=== PATIENT | female | born 1945 | race Two or more races ===

== ENCOUNTER 2017-06-30 08:58 | Outpatient (CLI) | payer OTHER | END 2017-06-30 09:45 | disposition home or self-care (01) | LOC: NUCLEAR 08:58 | DX: I10 Essential (primary) hypertension (principal); I87.2 Venous insufficiency (chronic) (peripheral); M54.5 Low back pain; K21.9 Gastro-esophageal reflux disease without esophagitis; E66.8 Other obesity; E78.9 Disorder of lipoprotein metabolism, unspecified; N39.9 Disorder of urinary system, unspecified; N39.0 Urinary tract infection, site not specified ==

== ENCOUNTER 2017-08-05 10:18 | Outpatient (CLI) | payer OTHER | END 2017-08-05 10:47 | disposition home or self-care (01) | LOC: MRI 10:18 | DX: M25.561 Pain in right knee (principal); M25.562 Pain in left knee; R07.9 Chest pain, unspecified | CPT/HCPCS: 73718 ==

== ENCOUNTER 2017-08-17 12:10 | Outpatient (CLI) | payer OTHER | END 2017-08-17 13:00 | disposition home or self-care (01) | LOC: NUCLEAR 12:10 | DX: M85.88 Other specified disorders of bone density and structure, other site (principal); M81.0 Age-related osteoporosis without current pathological fracture ==

== ENCOUNTER 2017-09-06 15:35 | Outpatient (CLI) | payer OTHER | END 2017-09-06 17:05 | disposition home or self-care (01) | LOC: NUCLEAR 15:35 | DX: M25.461 Effusion, right knee (principal); M25.462 Effusion, left knee; M25.561 Pain in right knee; M25.562 Pain in left knee; I73.9 Peripheral vascular disease, unspecified ==

== ENCOUNTER 2017-10-05 09:16 | Outpatient (CLI) | payer OTHER | END 2017-10-05 09:35 | disposition home or self-care (01) | LOC: MRI 09:16 | DX: M54.5 Low back pain (principal) | CPT/HCPCS: 72148 ==

== ENCOUNTER → 2017-12-10 | Outpatient (CLI) | payer OTHER | END | disposition home or self-care (01) | LOC: SONOGRAMA 08:33 → MAMO-SONO 08:45 | DX: R16.0 Hepatomegaly, not elsewhere classified (principal) ==

== ENCOUNTER 2018-05-26 10:43 | Outpatient (CLI) | payer OTHER | END 2018-05-26 10:52 | disposition home or self-care (01) | LOC: RAD 10:43 | DX: R07.89 Other chest pain (principal) ==

== ENCOUNTER 2018-05-26 12:00 | Outpatient (CLI) | payer OTHER | END 2018-05-26 12:10 | disposition home or self-care (01) | LOC: EKG 12:00 | DX: I10 Essential (primary) hypertension (principal) ==

== ENCOUNTER 2018-05-26 13:16 | Outpatient (CLI) | payer OTHER | END 2018-05-26 13:33 | disposition home or self-care (01) | LOC: MAMO-SONO 13:16 | DX: Z12.31 Encounter for screening mammogram for malignant neoplasm of breast (principal); Z87.898 Personal history of other specified conditions; N64.89 Other specified disorders of breast; I10 Essential (primary) hypertension; E78.89 Other lipoprotein metabolism disorders; E66.8 Other obesity; M54.5 Low back pain; K21.9 Gastro-esophageal reflux disease without esophagitis; N39.8 Other specified disorders of urinary system; N39.0 Urinary tract infection, site not specified; I11.9 Hypertensive heart disease without heart failure; R16.0 Hepatomegaly, not elsewhere classified ==

== ENCOUNTER 2018-10-03 10:58 | Outpatient (CLI) | payer OTHER | END 2018-10-03 11:02 | disposition home or self-care (01) | LOC: RAD 10:58 | DX: M25.561 Pain in right knee (principal); M25.562 Pain in left knee ==

== ENCOUNTER 2018-10-03 11:16 | Outpatient (CLI) | payer OTHER | END 2018-10-03 11:18 | disposition home or self-care (01) | LOC: SONOGRAMA 11:16 | DX: N64.4 Mastodynia (principal); N83.00 Follicular cyst of ovary, unspecified side ==

== ENCOUNTER 2019-06-19 09:44 | Outpatient (CLI) | payer OTHER | END 2019-06-19 15:44 | disposition home or self-care (01) | LOC: MAMO-SONO 09:44 | DX: M54.5 Low back pain (principal); M23.91 Unspecified internal derangement of right knee; E66.8 Other obesity; E78.89 Other lipoprotein metabolism disorders; I11.9 Hypertensive heart disease without heart failure; E55.9 Vitamin D deficiency, unspecified; H52.4 Presbyopia; N76.0 Acute vaginitis; M25.561 Pain in right knee; M25.562 Pain in left knee; K21.9 Gastro-esophageal reflux disease without esophagitis; H43.393 Other vitreous opacities, bilateral; Z12.31 Encounter for screening mammogram for malignant neoplasm of breast ==

== ENCOUNTER → 2020-08-20 13:27 | Outpatient (CLI) | payer OTHER | END | disposition home or self-care (01) | LOC: NUCLEAR 13:27 | PROVIDERS: ATTEND Internal Medicine | DX: M81.0 Age-related osteoporosis without current pathological fracture (principal); M54.5 Low back pain ==

== ENCOUNTER 2020-08-20 14:02 | Outpatient (CLI) | payer OTHER | END 2020-08-20 14:16 | disposition home or self-care (01) | LOC: RAD 14:02 → MAMO-SONO 14:15 → RAD 14:16 | PROVIDERS: ATTEND Internal Medicine | DX: Z12.31 Encounter for screening mammogram for malignant neoplasm of breast (principal); Z87.898 Personal history of other specified conditions; N64.89 Other specified disorders of breast; M23.91 Unspecified internal derangement of right knee; M54.5 Low back pain; K21.9 Gastro-esophageal reflux disease without esophagitis; E66.8 Other obesity; E78.89 Other lipoprotein metabolism disorders; I11.9 Hypertensive heart disease without heart failure; E55.9 Vitamin D deficiency, unspecified; H52.4 Presbyopia; N76.0 Acute vaginitis; H43.393 Other vitreous opacities, bilateral; Z13.820 Encounter for screening for osteoporosis ==

== ENCOUNTER 2021-09-10 10:33 | Outpatient (CLI) | payer OTHER | END 2021-09-10 10:37 | disposition home or self-care (01) | LOC: MAMO-SONO 10:33 | PROVIDERS: ATTEND Internal Medicine | DX: Z12.31 Encounter for screening mammogram for malignant neoplasm of breast (principal); Z13.820 Encounter for screening for osteoporosis; M23.91 Unspecified internal derangement of right knee; M54.50 Low back pain, unspecified; K21.9 Gastro-esophageal reflux disease without esophagitis; E66.8 Other obesity; E78.9 Disorder of lipoprotein metabolism, unspecified; I11.9 Hypertensive heart disease without heart failure; E55.9 Vitamin D deficiency, unspecified; H52.4 Presbyopia; N76.0 Acute vaginitis; H43.393 Other vitreous opacities, bilateral ==

== ENCOUNTER 2021-12-23 10:17 | Outpatient (CLI) | payer OTHER | END 2021-12-23 15:26 | disposition home or self-care (01) | LOC: MRI 10:17 | PROVIDERS: ATTEND Orthopaedic Surgery | DX: M25.561 Pain in right knee (principal); M25.562 Pain in left knee; I11.9 Hypertensive heart disease without heart failure; I70.0 Atherosclerosis of aorta; M23.91 Unspecified internal derangement of right knee | CPT/HCPCS: 73721 ==

== ENCOUNTER → 2022-12-29 | Outpatient (CLI) | payer OTHER | END | disposition home or self-care (01) | LOC: RAD 13:25 | PROVIDERS: ATTEND Internal Medicine | DX: N60.12 Diffuse cystic mastopathy of left breast (principal); N60.11 Diffuse cystic mastopathy of right breast; Z12.31 Encounter for screening mammogram for malignant neoplasm of breast; M23.91 Unspecified internal derangement of right knee; M54.59 Other low back pain; K21.9 Gastro-esophageal reflux disease without esophagitis; E66.8 Other obesity; E78.9 Disorder of lipoprotein metabolism, unspecified; I11.9 Hypertensive heart disease without heart failure; E55.9 Vitamin D deficiency, unspecified; H52.4 Presbyopia; N76.0 Acute vaginitis; H43.393 Other vitreous opacities, bilateral; I70.0 Atherosclerosis of aorta; I87.2 Venous insufficiency (chronic) (peripheral); Z87.891 Personal history of nicotine dependence ==

== ENCOUNTER 2023-04-22 08:52 | Outpatient (CLI) | payer OTHER | END 2023-04-22 09:04 | disposition home or self-care (01) | LOC: SONOGRAMA 08:52 | PROVIDERS: ATTEND Internal Medicine Gastroenterology | DX: R16.0 Hepatomegaly, not elsewhere classified (principal) ==

== ENCOUNTER 2023-10-28 09:59 | Outpatient (CLI) | payer OTHER | END 2023-10-28 10:13 | disposition home or self-care (01) | LOC: MRI 09:59 | PROVIDERS: ATTEND General Practice | DX: M17.0 Bilateral primary osteoarthritis of knee (principal) | CPT/HCPCS: 73721 ==

== ENCOUNTER 2023-12-22 09:00 | Inpatient (IN) | payer OTHER ==
[~2023-12-22] VITALS: Ht 165.1 cm; Wt 93.9 kg
[2023-12-22 11:07] LABS: URINE APPEARANCE Cloudy; URINE BILIRRUBIN Negative (NEGATIVE); URINE BLOOD Negative; URINE COLOR Yellow; URINE GLUCOSE Negative (NEGATIVE); URINE KETONE Negative (NEGATIVE); URINE LEUKOCYTE Negative; URINE NITRATE Negative; URINE PROTEIN Negative (NEGATIVE); URINE UROBILINOGEN 0.2 E.U./dl
[2023-12-22 11:08] LABS: HEMOGLOBIN 15.1 g/dL (12.0-15.00); MEAN CELL VOLUME 89.2 fL (80.00-100.00); MEAN CORPUSCULAR HEMOGLOBIN 30.6 pg (27.00-32.0); MEAN CORPUSCULAR HGB CONC 34.3 g/dl (32.0-36.0); PLATELET COUNT 193 K/uL (150-450); RED BLOOD COUNT 4.93 M/uL (4.00-6.00); RED CELL DISTRIBUTION WIDTH 14.7 % (11.5-14.5)
[2023-12-22 11:11] LABS: URINE BACTERIA 8953.3 uL (0.0-1933); URINE EPITHELIAL CELLS 52.8 uL (0.0-38.8); URINE RBC 12.9 uL (0.0-20.8); URINE WBC 98.4 uL (0.0-23.2)
[2023-12-22 11:38] LABS: INR 1.01; PARTIAL THROMBOPLASTIN TIME 30.4 SECONDS (22.0-34.0)
[2023-12-22 11:44] LABS: URINE CAST 1.06 uL (0.0-1.40)
[2023-12-22 11:46] LABS: ALBUMIN 3.7 gm/dL (3.4-5.0); BILIRUBIN TOTAL 0.65 mg/dL (0.3-1.2); CALCIUM 9.5 mg/dL (8.5-10.1); CREATININE SERUM 0.71 mg/dL (0.55-1.02); GFR 79.82; POTASSIUM 4.74 mEq/L (3.5-5.1); TOTAL PROTEIN 7.7 gm/dL (6.4-8.2)
[2023-12-22] MEDS ORDERED: IRBESARTAN-HCT1 EACH PO (12:23)
[2023-12-22] MEDS ORDERED: ZOCOR20 MG PO (12:24)
[2023-12-22 12:28] VITALS: BP 117/79
[2023-12-27] MEDS ORDERED: CEFAZOLIN SODIUM 1,000 MG VIAL ONE (06:15)
[2023-12-27] MEDS ORDERED: TRANEXAMIC ACID 100MG/1ML (1000MG) AMPUL IV ONE (06:19)
[2023-12-27] MEDS ORDERED: KETOROLAC TROMETHAMINE 60 MG VIAL IM ONE (08:06)
[2023-12-27] MEDS ORDERED: VANCOMYCIN HCL 1,000 MG VIAL ONE (08:07)
[2023-12-27] MEDS ORDERED: MORPHINE SULFATE 4 MG/ML VIAL IV ONE ×3 (08:45→12:10)
[2023-12-27] MEDS ORDERED: ONDANSETRON HCL 2 MG/ML VIAL IV PRN (09:00)
[2023-12-27] MEDS ORDERED: ENOXAPARIN SODIUM 30 MG/0.3 ML SYRINGE SUBCUTANEO SCH (09:00)
[2023-12-27] MEDS ORDERED: OxyCODONE HCL/APAP UD (PERCOCET) PO PRN (09:00)
[2023-12-27] MEDS ORDERED: MORPHINE SULFATE 4 MG/ML CARTRIDGE IV SCH (12:00)
[2023-12-27] MEDS ORDERED: CEFAZOLIN SODIUM 1,000 MG VIAL IV SCH (12:00)
[2023-12-27 14:00] VITALS: BP 114/73
[2023-12-27 18:55] VITALS: BP 113/72
[2023-12-27] MEDS ORDERED: GABAPENTIN 100 MG CAPSULE PO SCH (21:00)
[2023-12-27] MEDS ORDERED: ORPHENADRINE CITRATE 100 MG TABLET PO SCH (21:00)
[2023-12-28] VITALS: BP 124/76
[2023-12-28 02:16] LABS: HEMATOCRIT 38.2 % (36.0-45.00); HEMOGLOBIN 13.1 g/dL (12.0-15.00); MEAN CELL VOLUME 88.2 fL (80.00-100.00); MEAN CORPUSCULAR HEMOGLOBIN 30.4 pg (27.00-32.0); MEAN CORPUSCULAR HGB CONC 34.4 g/dl (32.0-36.0); PLATELET COUNT 136 K/uL (150-450); RED BLOOD COUNT 4.33 M/uL (4.00-6.00); RED CELL DISTRIBUTION WIDTH 14.9 % (11.5-14.5)
[2023-12-28 08:40] VITALS: BP 113/70
[2023-12-28 14:05] VITALS: BP 109/71
[2023-12-28] MEDS ORDERED: Cyanocobalamin/Mecobalamin 1 TAB.SL SL SCH (15:17)
[2023-12-28] MEDS ORDERED: IRBESARTAN 150 MG TABLET PO SCH (17:00)
[2023-12-28] MEDS ORDERED: IRON FUM,PS/FOLIC ACID/VITC/B3 1 CAP CAPSULE PO SCH (17:00)
[2023-12-28] MEDS ORDERED: VITAMIN B COMPLEX 1 EACH PO SCH (17:00)
[2023-12-28 17:46] VITALS: BP 100/55
[2023-12-29 02:02] VITALS: BP 120/69
[2023-12-29 03:39] LABS: HEMATOCRIT 37.1 % (36.0-45.00); HEMOGLOBIN 12.4 g/dL (12.0-15.00); MEAN CELL VOLUME 90.3 fL (80.00-100.00); MEAN CORPUSCULAR HEMOGLOBIN 30.2 pg (27.00-32.0); MEAN CORPUSCULAR HGB CONC 33.4 g/dl (32.0-36.0); RED BLOOD COUNT 4.11 M/uL (4.00-6.00); RED CELL DISTRIBUTION WIDTH 14.8 % (11.5-14.5)
[2023-12-29 03:52] LABS: PLATELET COUNT 125 K/uL (150-450)
[2023-12-29 08:00] VITALS: BP 106/72
[2023-12-29] MEDS ORDERED: NORFLEX100MG PO (10:32)
[2023-12-29] MEDS ORDERED: OXYC1TAB9 PO (10:32)
[2023-12-29] MEDS ORDERED: XARELTO10 MG PO (10:32)
[2023-12-29] MEDS ORDERED: GABAPENTIN100 MG PO (10:32)
[2023-12-29 16:00] VITALS: BP 136/82
== END 2023-12-29 05:30 | disposition home or self-care (01) | DRG 470 ==
LOC: O/R 12-27 05:23 → OB/GYN 12-27 05:23 → SURG 12-27 09:00 → OB/GYN 12-27 10:31
PROVIDERS: ADMIT Orthopaedic Surgery; ATTEND Orthopaedic Surgery
PROC: 0SRC0JZ Replacement of Right Knee Joint with Synthetic Substitute, Open Approach (ICD-10-PCS; principal; 2023-12-27 10:00)
DX: M17.11 Unilateral primary osteoarthritis, right knee (principal); D62 Acute posthemorrhagic anemia; M85.661 Other cyst of bone, right lower leg; I10 Essential (primary) hypertension; E78.5 Hyperlipidemia, unspecified

== ENCOUNTER 2024-04-18 12:47 | Outpatient (CLI) | payer OTHER ==
[~2024-04-18 12:47] MED LIST: GABAPENTIN100 MG PO; IRBESARTAN-HCT1 EACH PO; NORFLEX100MG PO; OXYC1TAB9 PO; XARELTO10 MG PO; ZOCOR20 MG PO
== END 2024-04-18 12:57 | disposition home or self-care (01) ==
LOC: MAMO-SONO 12:47
PROVIDERS: ATTEND Internal Medicine
DX: Z12.39 Encounter for other screening for malignant neoplasm of breast (principal); I87.2 Venous insufficiency (chronic) (peripheral); I70.0 Atherosclerosis of aorta; I10 Essential (primary) hypertension; M25.561 Pain in right knee; M25.562 Pain in left knee; Z12.31 Encounter for screening mammogram for malignant neoplasm of breast

== ENCOUNTER 2024-09-13 10:26 | Inpatient (IN) | payer OTHER ==
[~2024-09-13] VITALS: Ht 160 cm; Wt 89.8 kg
[2024-09-13] MEDS ORDERED: LOVAZA1 GM PO (12:06)
--- NOTE | 2024-09-13 12:07 | NUR ---
SE RCIBE PTE. PRESENTANDO INFLAMCION EN AREA ABDOMINAL. NO NAUSEAS NI VOMITOS. SE UBICA EN AREA FAST TRACK.
[2024-09-13] MEDS ORDERED: FAMOtidine 10 MG/ML (4ML VIAL) IV ONE (12:45)
[2024-09-13] MEDS ORDERED: CEFTRIAXONE SODIUM 1,000 MG VIAL IV ONE (12:45)
[2024-09-13] MEDS ORDERED: 0.9 % SODIUM CHLORIDE 1,000 ML IV ONE (12:45)
[2024-09-13] MEDS ORDERED: CEFTRIAXONE SODIUM 1,000 MG VIAL ONE (12:59)
[2024-09-13] MEDS ORDERED: FAMOTIDINE/PF 20 MG/2 ML VIAL ONE (12:59)
[2024-09-13 13:35] LABS: BASO % 0.8 % (0.1-1.2); EOS % 1.3 % (0.7-7.0); HEMATOCRIT 42.3 % (34.1-44.9); HEMOGLOBIN 14.1 g/dL (11.2-15.7); LYMPH # 1.35 (1.18-3.74); LYMPH % 17.3 % (19.3-53.1); MEAN CORPUSCULAR HEMOGLOBIN 30.1 pg (25.6-32.2); MONO # 0.48 (0.24-0.82); MONO % 6.1 % (4.7-12.5); NEUT # 5.79 (1.56-6.13); NEUT % 74.1 % (34.0-71.1); PLATELET COUNT 170 K/uL (163-369); RED BLOOD COUNT 4.69 M/uL (3.93-5.22); RED CELL DISTRIBUTION WIDTH 14.5 % (11.6-14.4)
[2024-09-13 13:48] LABS: PH,URINE 5.5 (5.0-8.0); URINE APPEARANCE Clear; URINE BILIRRUBIN Negative (NEGATIVE); URINE BLOOD Negative; URINE COLOR Yellow; URINE GLUCOSE Negative (NEGATIVE); URINE KETONE Trace (NEGATIVE); URINE LEUKOCYTE Negative; URINE NITRATE Negative; URINE PROTEIN Trace (NEGATIVE)
[2024-09-13 13:51] LABS: URINE BACTERIA 5395.3 uL (0.0-1933); URINE EPITHELIAL CELLS 50.6 uL (0.0-38.8); URINE RBC 10.1 uL (0.0-20.8); URINE WBC 47.9 uL (0.0-23.2)
[2024-09-13 14:01] LABS: INR 1.02; PARTIAL THROMBOPLASTIN TIME 27.2 SECONDS (22.0-34.0); PROTHROMBIN TIME 11.1 SECONDS (9.0-11.5)
--- NOTE | 2024-09-13 14:05 | NUR ---
SE LE ORIENTA A PACIENTE SOBRE LA ORDEN MEDICA, REFIERE ENTENDER LAS MISMAS. SE CANALIZA Y SE LE COLOCA EL IVF'S, SE LE JONEL LAS MUETRAS Y SE LE ADMINISTRAN LOS MEDICAMENTOS CATRACHITA LA ORDEN MEDICA.
[2024-09-13 14:06] LABS: URINE CAST 1.03 uL (0.0-1.40)
[2024-09-13 14:11] LABS: ALBUMIN 3.5 gm/dL (3.4-5.0); BILIRUBIN TOTAL 0.46 mg/dL (0.3-1.2); CREATININE SERUM 0.62 mg/dL (0.55-1.02); GFR 93.09; GLOBULINA 3.4 G/DL (2.4-3.5); POTASSIUM 4.23 mEq/L (3.5-5.1); TOTAL PROTEIN 6.9 gm/dL (6.4-8.2)
[2024-09-13] MEDS ORDERED: FUROsemide 20 MG/2 ML VIAL IV SCH (21:51)
[2024-09-13] MEDS ORDERED: IPRATROPIUM BROMIDE 0.5 MG/2.5 ML AMPUL.NEB IH SCH (21:52)
[2024-09-13] MEDS ORDERED: ACETAMINOPHEN 500 MG GEL..CAP PO PRN (22:00)
[2024-09-13] MEDS ORDERED: 0.9 % SODIUM CHLORIDE 1,000 ML IV SCH (22:00)
[2024-09-13] MEDS ORDERED: MORPHINE SULFATE 2 MG/ML CARTRIDGE IV ONE (22:15)
[2024-09-13] MEDS ORDERED: KETOROLAC TROMETHAMINE 15 MG VIAL IV ONE (22:15)
[2024-09-13] MEDS ORDERED: FUROsemide 20 MG/2 ML VIAL ONE (23:16)
[2024-09-13 23:42] VITALS: BP 141/84; O2SAT 97
[2024-09-14 00:46] LABS: LDH 184 U/L (84-246)
[2024-09-14 00:49] LABS: HCG QUANTITATIVE < 1 mUI/mL (1-3)
[2024-09-14] MEDS ORDERED: DIPHENHYDRAMINE HCL 50 MG/ML VIAL 1ML ONE ×2 (01:36→01:45)
[2024-09-14] MEDS ORDERED: DIPHENHYDRAMINE HCL 50 MG/ML VIAL 1ML IV STA (01:36)
[2024-09-14 06:16] VITALS: BP 107/71; O2SAT 96
[2024-09-14 08:00] VITALS: BP 132/80; O2SAT 95
[2024-09-14] MEDS ORDERED: HYDROCHLOROTHIAZIDE 12.5 MG CAPSULE PO SCH (09:00)
[2024-09-14] MEDS ORDERED: IRBESARTAN 150 MG TABLET PO SCH (09:00)
[2024-09-14] MEDS ORDERED: FAMOTIDINE/PF 20 MG in 0.9 % SODIUM CHLORIDE 8 ML IV PUSH SCH (09:00)
[2024-09-14 11:41] LABS: COVID-19 AG NEGATIVE (NEGATIVE)
[2024-09-14] MEDS ORDERED: CEFAZOLIN SODIUM 1,000 MG VIAL IV NR (13:00)
[2024-09-14] MEDS ORDERED: CEFAZOLIN SODIUM 1,000 MG VIAL ONE ×2 (13:28→17:23)
[2024-09-14] MEDS ORDERED: THROMBIN,HU/FIBRINOGEN/CALCIUM 10 ML SYRINGE TOP ONE (14:23)
[2024-09-14] MEDS ORDERED: MORPHINE SULFATE 4 MG/ML CARTRIDGE IV PRN (15:15)
[2024-09-14] MEDS ORDERED: OxyCODONE HCL 5 MG TABLET (ROXICODONE) PO PRN (15:15)
[2024-09-14] MEDS ORDERED: RINGERS SOLUTION,LACTATED 1,000 ML IV SCH (15:15)
[2024-09-14] MEDS ORDERED: MORPHINE SULFATE 4 MG/ML VIAL IV ONE (16:35)
[2024-09-14] MEDS ORDERED: SIMETHICONE 125 MG CAPSULE PO SCH (17:00)
[2024-09-14] MEDS ORDERED: METOCLOPRAMIDE HCL 5 MG/ML VIAL IV SCH (17:00)
[2024-09-14] MEDS ORDERED: SIMVASTATIN 20 MG TABLET PO SCH (17:00)
[2024-09-14] MEDS ORDERED: CEFAZOLIN SODIUM 1,000 MG VIAL IV SCH (17:00)
[2024-09-14] MEDS ORDERED: METOCLOPRAMIDE HCL 5 MG/ML VIAL ONE (17:23)
[2024-09-14] MEDS ORDERED: KETOROLAC TROMETHAMINE 30 MG VIAL IM SCH (18:00)
[2024-09-14] MEDS ORDERED: KETOROLAC TROMETHAMINE 30 MG VIAL ONE (18:13)
[2024-09-14 19:07] LABS: BASO % 0.3 % (0.1-1.2); EOS # 0.02 (0.04-0.54); EOS % 0.1 % (0.7-7.0); HEMATOCRIT 42.5 % (34.1-44.9); LYMPH # 0.91 (1.18-3.74); LYMPH % 6.6 % (19.3-53.1); MEAN CORPUSCULAR HEMOGLOBIN 29.4 pg (25.6-32.2); MONO # 0.59 (0.24-0.82); MONO % 4.3 % (4.7-12.5); NEUT # 12.17 (1.56-6.13); NEUT % 88.5 % (34.0-71.1); RED BLOOD COUNT 4.77 M/uL (3.93-5.22); RED CELL DISTRIBUTION WIDTH 14.3 % (11.6-14.4)
[2024-09-14 19:11] VITALS: BP 102/68; O2SAT 100
[2024-09-14 19:29] LABS: PLATELET COUNT 114 K/uL (163-369)
[2024-09-14 19:31] LABS: CALCIUM 8.7 mg/dL (8.5-10.1); POTASSIUM 4.26 mEq/L (3.5-5.1)
[2024-09-14 19:33] LABS: CREATININE SERUM 0.58 mg/dL (0.55-1.02); GFR 100.54; PHOSPHOROUS 3.4 mg/dL (2.5-4.9)
[2024-09-14] MEDS ORDERED: FAMOTIDINE/PF 20 MG/2 ML VIAL IV PUSH SCH (21:00)
[2024-09-15 00:53] VITALS: BP 133/79; O2SAT 98
[2024-09-15 07:59] LABS: BASO % 0.2 % (0.1-1.2); EOS % 0.8 % (0.7-7.0); HEMATOCRIT 39.1 % (34.1-44.9); HEMOGLOBIN 13.1 g/dL (11.2-15.7); LYMPH # 0.43 (1.18-3.74); LYMPH % 3.4 % (19.3-53.1); MEAN CORPUSCULAR HEMOGLOBIN 29.9 pg (25.6-32.2); MONO # 0.63 (0.24-0.82); NEUT # 11.36 (1.56-6.13); PLATELET COUNT 166 K/uL (163-369); RED BLOOD COUNT 4.38 M/uL (3.93-5.22); RED CELL DISTRIBUTION WIDTH 14.4 % (11.6-14.4)
[2024-09-15 08:34] VITALS: BP 91/56; O2SAT 96
[2024-09-15] MEDS ORDERED: TRAMADOL HCL 50 MG TABLET PO PRN (08:45)
[2024-09-15] MEDS ORDERED: ENOXAPARIN SODIUM 40 MG/0.4 ML SYRINGE SUBCUTANEO SCH (09:00)
[2024-09-15 12:02] LABS: BASO % 0.1 % (0.1-1.2); EOS # 0.11 (0.04-0.54); EOS % 0.9 % (0.7-7.0); HEMATOCRIT 33.8 % (34.1-44.9); HEMOGLOBIN 11.2 g/dL (11.2-15.7); LYMPH # 0.36 (1.18-3.74); MEAN CORPUSCULAR HEMOGLOBIN 29.7 pg (25.6-32.2); MONO # 0.47 (0.24-0.82); MONO % 3.9 % (4.7-12.5); NEUT # 11.05 (1.56-6.13); NEUT % 91.6 % (34.0-71.1); RED BLOOD COUNT 3.77 M/uL (3.93-5.22); RED CELL DISTRIBUTION WIDTH 14.5 % (11.6-14.4)
[2024-09-15 12:03] LABS: PLATELET COUNT 102 K/uL (163-369)
[2024-09-15 12:44] LABS: ALBUMIN 2.3 gm/dL (3.4-5.0); BILIRUBIN TOTAL 0.76 mg/dL (0.3-1.2); CALCIUM 7.9 mg/dL (8.5-10.1); CREATININE SERUM 0.64 mg/dL (0.55-1.02); GFR 89.74; GLOBULINA 2.4 G/DL (2.4-3.5); POTASSIUM 4.15 mEq/L (3.5-5.1); TOTAL PROTEIN 4.7 gm/dL (6.4-8.2)
[2024-09-15 17:30] VITALS: BP 137/74; O2SAT 92
[2024-09-15] MEDS ORDERED: DIPHENHYDRAMINE HCL 25 MG CAPSULE PO ONE (21:15)
[2024-09-15] MEDS ORDERED: DIPHENHYDRAMINE HCL 25 MG CAPSULE PO SCH (21:30)
[2024-09-16 00:17] VITALS: BP 102/64; O2SAT 98
[2024-09-16 07:17] LABS: BASO % 0.2 % (0.1-1.2); EOS % 2.3 % (0.7-7.0); HEMATOCRIT 35.7 % (34.1-44.9); HEMOGLOBIN 11.8 g/dL (11.2-15.7); LYMPH # 0.62 (1.18-3.74); MEAN CORPUSCULAR HEMOGLOBIN 29.2 pg (25.6-32.2); MONO # 0.69 (0.24-0.82); MONO % 7.8 % (4.7-12.5); NEUT # 7.29 (1.56-6.13); NEUT % 82.2 % (34.0-71.1); RED BLOOD COUNT 4.04 M/uL (3.93-5.22); RED CELL DISTRIBUTION WIDTH 14.2 % (11.6-14.4)
[2024-09-16 07:34] LABS: ALBUMIN 2.5 gm/dL (3.4-5.0); BILIRUBIN TOTAL 0.89 mg/dL (0.3-1.2); CALCIUM 8.1 mg/dL (8.5-10.1); CREATININE SERUM 0.41 mg/dL (0.55-1.02); GFR 150.03; GLOBULINA 2.6 G/DL (2.4-3.5); POTASSIUM 3.85 mEq/L (3.5-5.1); TOTAL PROTEIN 5.1 gm/dL (6.4-8.2)
[2024-09-16 07:37] LABS: PLATELET COUNT 126 K/uL (163-369)
[2024-09-16 08:24] VITALS: BP 112/68; O2SAT 95
[2024-09-16 17:20] VITALS: BP 126/80; O2SAT 94
[2024-09-17 01:13] VITALS: BP 137/78; O2SAT 98
[2024-09-17 08:28] VITALS: BP 119/69; O2SAT 95
== END 2024-09-17 17:21 | disposition home or self-care (01) | DRG 738 ==
LOC: ER 11:03 → SURH 22:19
PROVIDERS: General Practice; Internal Medicine; ADMIT Obstetrics & Gynecology Gynecologic Oncology; ATTEND Obstetrics & Gynecology Gynecologic Oncology
PROC: BW21YZZ Computerized Tomography (CT Scan) of Abdomen and Pelvis using Other Contrast (ICD-10-PCS; 2024-09-13)
PROC: 0UT90ZZ Resection of Uterus, Open Approach (ICD-10-PCS; 2024-09-14)
PROC: 0UT70ZZ Resection of Bilateral Fallopian Tubes, Open Approach (ICD-10-PCS; 2024-09-14)
PROC: 07BC0ZZ Excision of Pelvis Lymphatic, Open Approach (ICD-10-PCS; 2024-09-14)
PROC: 0DBW0ZZ Excision of Peritoneum, Open Approach (ICD-10-PCS; 2024-09-14)
PROC: 0DTJ0ZZ Resection of Appendix, Open Approach (ICD-10-PCS; 2024-09-14)
PROC: 0UT20ZZ Resection of Bilateral Ovaries, Open Approach (ICD-10-PCS; principal; 2024-09-14 13:00)
DX: C56.1 Malignant neoplasm of right ovary (principal); R60.0 Localized edema